=== PATIENT | female | born 1965 | race Caucasian/White ===

== ENCOUNTER → 2022-02-09 | Outpatient (CLI) | payer BC | LOC: CARD 08:56 | PROVIDERS: ATTEND Family Medicine | DX: R00.2 Palpitations (principal); R55 Syncope and collapse | CPT/HCPCS: 93242 ==

== ENCOUNTER → 2022-04-05 | Outpatient (CLI) | payer BC ==
--- NOTE | 2022-04-05 09:22 | Diagnostic Imaging Report ---
PROCEDURE: MR imaging cervical spine without contrast. TECHNIQUE: Multiplanar, multisequence MR imaging of the cervical spine was performed without contrast. INDICATION: Chronic neck pain. COMPARISON: none. FINDINGS: No acute fracture or dislocation is seen in the cervical spine. There is normal alignment of the cervical spine. The vertebral body heights and disc spaces are well maintained. The bone marrow signal is unremarkable. No focal osseous lesions. The craniocervical junction is maintained. The cervical spinal cord demonstrates normal intrinsic signal. No epidural collections are seen. The included brainstem and posterior fossa have normal appearance. Multilevel degenerative changes are seen in the cervical spine with posterior disc bulges and uncovertebral arthropathy. C2-C3: No significant spinal canal or foraminal stenosis. C3-C4: No significant spinal canal or foraminal stenosis. C4-C5: No significant spinal canal or foraminal stenosis C5-C6: Left subarticular disc bulge and uncovertebral arthropathy results in no significant spinal canal narrowing and no right and [id number] left foraminal narrowing. C6-C7: Left subarticular disc bulge and uncovertebral arthropathy results in mild spinal canal narrowing and mild right and moderate to severe left foraminal stenosis. C7-T1: No significant spinal canal or foraminal stenosis. The soft tissues of neck are unremarkable. IMPRESSION: 1. No acute fracture or dislocation of the cervical spine. 2. Multilevel degenerative changes in the cervical spine, greatest at C5-C6 and C6-C7. In particular, left foraminal stenosis is present at these levels. Dictated by: Dictated on workstation # [id number]
== END ==
LOC: RAD 08:45
PROVIDERS: ATTEND Family Medicine
DX: M47.22 Other spondylosis with radiculopathy, cervical region (principal); M48.02 Spinal stenosis, cervical region
CPT/HCPCS: 72141

== ENCOUNTER → 2022-04-13 | Outpatient (CLI) | payer BC ==
[~2022-04-13] MED LIST: ACET-2650 PO; BACL20TA PO; CALC-1049 PO; DIPH25TA31 PO; IBUP-2473 PO; MTP25TSR PO; MULT-1136 PO; OMEP40CA6 PO; TRZ50T PO
== END ==
LOC: CARD 14:03
PROVIDERS: ATTEND Internal Medicine Cardiovascular Disease
DX: R55 Syncope and collapse (principal)
CPT/HCPCS: 93306

== ENCOUNTER 2022-04-17 12:00 | Day surgery (SDC) | payer BC ==
[~2022-04-17] VITALS: Ht 180 cm; Wt 92.7 kg
[2022-04-17 10:22] VITALS: BP 137/83
[2022-04-17 10:29] LABS: HEMATOCRIT 41 % (35-52); HEMOGLOBIN 13.3 g/dL (11.5-16.0); MEAN CORPUSCULAR HEMOGLOBIN 29 pg (25-34); MEAN CORPUSCULAR HGB CONC 32 g/dL (32-36); MEAN CORPUSCULAR VOLUME 89 fL (80-99); MEAN PLATELET VOLUME 9.4 fL (9.0-12.2); PLATELET COUNT 194 10^3/uL (130-400); WHITE BLOOD COUNT 6.1 10^3/uL (4.3-11.0)
[2022-04-17 10:44] LABS: PROTHROMBIN TIME PATIENT 13.2 SEC (12.2-14.7)
[2022-04-17 10:53] LABS: ALBUMIN 4.2 GM/DL (3.2-4.5); BILIRUBIN,TOTAL 0.5 MG/DL (0.1-1.0); CALCIUM 9.4 MG/DL (8.5-10.1); CREATININE SERUM 0.82 MG/DL (0.60-1.30); TOTAL PROTEIN 7.1 GM/DL (6.4-8.2)
[~2022-04-17 12:00] MED LIST changes: +HEParin (CATH LAB) 2,000 ML IV ONE; +HEParin 1000 UNIT/ML (10ML VIAL) FOR BOLUS ONE; +LIDOCAINE 1% INJ 20 ML VIAL ONE; +MIDAZOLAM 5 MG/5 ML (VERSED) VIAL ONE; +NITRO DRIP 25000 MCG/D5W 250 ML IV ONE; +NS IV 1000 ML 1,000 ML IV ONE; +NS IV 1000 ML 1,000 ML ONE; +VERAPAMIL 5 MG/2 ML (CALAN) VIAL IV ONE; +fentaNYL INJ 100 MCG/2 ML AMP ONE
--- NOTE | 2022-04-17 12:23 | Cardiac Procedure Note-CS/ASA ---
Pre-Procedure Note Pre-Op Procedure Note Date of Available H&P: Apr 12, 2022 Date H&P Reviewed: Apr 17, 2022 Time H&P Reviewed: 11:15 History & Physical: H&P Reviewed, No changes noted Conscious Sedation Pre-Proced ASA Score 3 For ASA 3 and 4: Consider anesthesia and medical clearance. Also, for patients with a history of failed moderate sedation consider anesthesia. Airway Lungs Heart ASA score ASA 1: a normal healthy patient ASA 2: a patient with a mild systemic disease (mid diabetes, controlled hypertension, obesity ASA 3: a patient with a severe systemic disease that limits activity (angina, COPD, prior Myocardial infarction) ASA 4: a patient with an incapacitating disease that is a constant threat to life (CHF, renal failure) ASA 5: a moribund patient not expected to survive 24 hrs. (ruptured aneurysm) ASA 6: a declared brain- patient whose organs are being harvested. For emergent operations, add the letter E after the classification Mallampati Classification Grade 2 Sedation Plan Analgesia, Amnesia, Plan communicated to team members The patient is an appropriate candidate to undergo the planned procedure, sedation, and anesthesia. The patient immediately re-assessed prior to indication. ILA CALDERÓN MD FACP FAC CCDS Apr 17, 2022 12:23
--- NOTE | 2022-04-17 12:29 | Discharge Inst-Cardiology ---
Discharge Inst-Cardiac Discharge Medications Continued Medications: Acetaminophen (Tylenol Arthritis) 650 Mg Tablet.er 650-1300 MG PO Q8H PRN for PAIN-MILD (1-4), TAB Baclofen (Baclofen) 20 Mg Tablet 20 MG PO DAILY PRN for MUSCLE SPASMS, TAB Calcium Carb/Vitamin D3/Vit K1 (Viactiv 650 mg-12.5 Mcg Chew) 650 Mg Calcium- 12.5 Mcg-40 Mcg Tab.chew 1 EACH PO BID, TAB Diphenhydramine HCl (Diphenhydramine HCl) 25 Mg Tablet 25 MG PO HS, TAB Metoprolol Succinate (Metoprolol Succinate) 25 Mg Tab.er.24h 25 MG PO HS, TAB Multivitamin (Multivitamin) 1 Each Tablet 1 EACH PO DAILY, TAB Omeprazole (Omeprazole) 40 Mg Capsule.dr 40 MG PO DAILY, CAP Trazodone HCl (Trazodone HCl) 50 Mg Tablet 50-100 MG PO HS PRN for SLEEP, TAB TAKES 1-2 (50MG) TABLETS Discontinued Medications: Ibuprofen (Ibuprofen) 200 Mg Tablet 600 MG PO Q6H PRN for PAIN-MILD (1-4), TAB ILA CALDERÓN MD FACP FACC CCDS Apr 17, 2022 12:29
[2022-04-17] MEDS ORDERED: NS IV 1000 ML 1,000 ML IV SCH (12:30)
--- NOTE | 2022-04-17 12:32 | Discharge Inst-Post CATH ---
Discharge Inst-CATH/EP Post Cardiac Cath/EP D/C Inst Follow Up/Plan F/u with Dr Caceres next week ACTIVITY * Go Home directly and rest. * Limit activity of the leg (or wrist if it was used) for 7 days including aerobics, swimming, jogging, bicycling, etc. * Avoid lifting, pushing, pulling or excessive movement of the affected extremit y for 7 days. * Customary sexual activity may be resumed after 2 days-use caution not to use a position that strains or causes pain to the affected extremity. * No driving for 24 hours. * NO SMOKING. * Avoid straining for bowel movements for 7 days. * Gentle walking on level ground is allowed. * Returning to work will depend on the type of procedure and the results. Your doctor will discuss this with you. CALL YOUR DOCTOR FOR ANY OF THE FOLLOWING: *If bleeding from the puncture site occurs- Apply gentle pressure to site with clean cloth and call your doctor or EMS. * If a knot or lump forms under the skin, increases in size, or causes pain. * If bruising appears to be worsening or moving further down your leg instead of disappearing. * Temperature above 101 F. CARE OF YOUR WRIST INCISION; * Bruising or purple discoloration of the skin near the puncture site is common. * You may shower. * DO NOT submerge wrist. * Leave dressing on FOR 24 hours. ILA CACERES MD FACP FAC CCDS Apr 17, 2022 12:32
[2022-04-17 13:50] VITALS: BP 115/79
[2022-04-17 14:00] VITALS: BP 111/83
[2022-04-17 14:30] VITALS: BP 112/74
--- NOTE | 2022-04-17 14:47 | CARDIAC CATHETERIZATION ---
DATE OF SERVICE: 04/17/2022 CARDIAC CATHETERIZATION INDICATION: The patient is a 56-year-old lady who has recently had symptoms of syncope and a monitor showed brief, nonsustained wide complex tachycardia. Cardiac catheterization was carried out after having obtained an informed consent. DESCRIPTION OF PROCEDURE: She was brought to the cardiac catheterization laboratory. The right wrist was prepped and draped in the usual sterile fashion. A 1% lidocaine was used for local anesthesia. A #6 Wolof sheath was introduced into the right femoral artery using the Seldinger technique. Catheter exchanges were made over an exchange length wire. We used a [place] catheter to carry out left coronary angiography and a 6-Wolof JR4 catheter to carry out right coronary angiography. Left heart catheterization was carried out using the [place] catheter and also the JR4 catheter. Left ventricular angiography was carried out through the JR4 catheter. The catheter was pulled back and removed. Following sheath removal, a wrist band was applied for hemostasis. She tolerated the procedure well. HEMODYNAMICS: Left ventricular end diastolic pressure following coronary angiography was 12 mmHg. There was no significant pressure gradient on pullback across the aortic valve. CORONARY ANGIOGRAPHY: Left main coronary artery is free of significant disease. Left anterior descending artery is free of significant disease. Left circumflex artery is free of significant disease. Right coronary artery is large and dominant. It has a somewhat high anterior origin. It does not exhibit significant disease. LEFT VENTRICULAR ANGIOGRAPHY: Left ventricular angiography was carried out in the right anterior oblique projection. Global left ventricular systolic function is normal. No regional wall motion abnormalities seen in this view. Ejection fraction is approximately 60%. CONCLUSIONS: 1. No angiographically significant coronary artery disease. 2. Normal global left ventricular systolic function, ejection fraction approximately 60%. 3. Left ventricular end-diastolic pressure of 12 mmHg. Job ID: [id number] DocumentID: [id number] Dictated Date: 04/17/2022 12:42:44 Stationary Engineer Date: 04/17/2022 14:45:00 Dictated By: ILA CALDERÓN MD; SYLVIE; FACP; FACC;
[2022-04-17 15:00] VITALS: BP 109/64
[2022-04-17 15:15] VITALS: BP 109/64
--- NOTE | 2022-04-17 21:39 | OPERATIVE REPORT ---
DATE OF SERVICE: 04/17/2022 PREOPERATIVE DIAGNOSIS: Syncope. POSTOPERATIVE DIAGNOSIS: Syncope. PROCEDURE: Implantable loop recorder implantation. DESCRIPTION OF PROCEDURE: Informed consent was obtained. The left prepectoral area was prepared and draped in the usual sterile fashion. A 1% lidocaine was used for local anesthesia. The tools provided with the Lumatix LINQ II device were used to make a subcutaneous pocket anterior to the fourth intercostal space on the left side into which the implantable loop recorder was placed and the skin edges were closed using Steri-Strips and Dermabond. She tolerated the procedure well. Job ID: [id number] DocumentID: [id number] Dictated Date: 04/17/2022 13:04:16 Automotive Assembler Date: 04/17/2022 21:38:00 Dictated By: ILA CALDERÓN MD; SYLVIE; FACP; FACC;
== END 2022-04-17 15:15 | disposition home or self-care (01) ==
LOC: CATH 12:00 → SDC 13:49 → CATH 15:15
PROVIDERS: ATTEND Internal Medicine Cardiovascular Disease
DX: I47.1 Supraventricular tachycardia (principal); I47.20 Ventricular tachycardia, unspecified; R55 Syncope and collapse
CPT/HCPCS: 33285; 80053; 80061; 85027; 85610; 85730; 87081; 93458; C1764; C1894; 36415

== ENCOUNTER 2022-06-13 05:33 | Outpatient (CLI) | payer BC ==
[~2022-06-13] VITALS: Ht 180.3 cm; Wt 95.5 kg
[~2022-06-13 05:33] MED LIST changes: -HEParin (CATH LAB) 2,000 ML IV ONE; -HEParin 1000 UNIT/ML (10ML VIAL) FOR BOLUS ONE; -LIDOCAINE 1% INJ 20 ML VIAL ONE; -MIDAZOLAM 5 MG/5 ML (VERSED) VIAL ONE; -NITRO DRIP 25000 MCG/D5W 250 ML IV ONE; -NS IV 1000 ML 1,000 ML IV ONE; -NS IV 1000 ML 1,000 ML ONE; -VERAPAMIL 5 MG/2 ML (CALAN) VIAL IV ONE; -fentaNYL INJ 100 MCG/2 ML AMP ONE
== END 2022-06-15 10:33 | disposition home or self-care (01) ==
LOC: PREOP 05:33
PROVIDERS: ATTEND Surgery
DX: Z01.818 Encounter for other preprocedural examination (principal)

== ENCOUNTER 2022-06-20 09:49 | Day surgery (SDC) | payer BC ==
--- NOTE | 2022-06-19 13:59 | HISTORY AND PHYSICAL ---
PROCEDURE DATE: 06/20/2022. ATTENDING PRIMARY CARE PHYSICIAN: Dr. Sera Montalvo. HISTORY OF PRESENT ILLNESS: Ms. Jolie France is a 56-year-old female who was referred over to us for episodes of reflux. She reports that she did have an EGD 3 years ago and reports that she remembers she did have a hiatal hernia. She reports that since that time, she recently developed issues where she eats and starts to swallow and will get dizzy as well as syncope. She denies any nausea or vomiting as well as no abdominal pain. She does report at times she does feel like food has gotten stuck; however, this is not frequent. She reports that she underwent a cardiac workup and was found to have an arrhythmia and was started on metoprolol. She reports that she still has these symptoms at times and was referred over to us for upper endoscopy. She denies any hematemesis or any coffee-ground emesis. MEDICAL HISTORY: 1. Gastroesophageal reflux disease. 2. Hiatal hernia. 3. Cardiac arrhythmia. SURGICAL HISTORY: Laparoscopic cholecystectomy in 1992, partial hysterectomy in 2008. ALLERGIES: Oral steroids, Floxin. MEDICATIONS: Omeprazole 40 mg, metoprolol ER 25 mg daily. SOCIAL HISTORY: Negative for tobacco smoker, for alcohol. FAMILY HISTORY: Father, hypertension. Mother, hypertension, myocardial infarction. VITAL SIGNS: Blood pressure is 140/80. Current weight is 206.2 pounds. 5 feet 11 inches. REVIEW OF SYSTEMS: Well-nourished female in no acute distress. She is not experiencing any shortness of breath or difficulty breathing. No chest pain, palpitations or diaphoresis. No nausea, vomiting or abdominal pain. No diarrhea or constipation. No red blood per rectum. No dark tarry stools. She does report episodes of heartburn. She denies any hematemesis or any coffee-ground emesis. No recent inadvertent weight loss. No fever or chills. All other review of systems negative. PHYSICAL EXAM: CHEST: Clear. Good breath sounds bilaterally. Heart: Regular, no murmurs. EXTREMITIES: No lower extremity edema. Negative Homans sign. HEENT: No scleral icterus. No cervical lymphadenopathy. ABDOMEN: Soft, nontender, nondistended. SKIN: Warm, dry and pink. NEUROLOGIC: Awake, alert and oriented x3. ASSESSMENT AND PLAN: A 56-year-old female with gastroesophageal reflux disease, who also has a history of hiatal hernia. She reports that she has had issues with syncope with dizziness at times. She reports that she underwent cardiac workup and reports that nothing significant was identified. It was then recommended to proceed with an upper endoscopy. At this time, we will proceed with scheduling her for an EGD with biopsies as appropriate. Job ID: [id number] DocumentID: [id number] Dictated Date: 06/19/2022 12:52:47 Supervisor Tank Cleaning Date: 06/19/2022 13:57:00 Dictated By: AC REYNOSO APRN
[~2022-06-20] VITALS: Ht 180.3 cm; Wt 95.5 kg
[2022-06-20] MEDS ORDERED: LACTATED RINGERS 1,000 ML IV STA (10:01)
[2022-06-20 10:13] VITALS: BP 116/77
[2022-06-20] MEDS ORDERED: HURRICAINE EXT TUBE (BENZOCAINE) XX PRN (10:15)
[2022-06-20] MEDS ORDERED: LIDOCAINE JELLY 2% 6 ML SYRINGE MM PRN (10:15)
[2022-06-20] MEDS ORDERED: PROPOFOL INJECTION 50 ML IV ONE (10:51)
[2022-06-20] MEDS ORDERED: MIDAZOLAM 2 MG/2 ML (VERSED) VIAL ONE (10:51)
[2022-06-20] MEDS ORDERED: LIDOCAINE JELLY 2% 6 ML SYRINGE ONE (11:02)
--- NOTE | 2022-06-20 11:03 | Progress Note-Pre Operative ---
Pre-Operative Progress Note Date of Available H&P: Jun 20, 2022 Date H&P Reviewed: Jun 20, 2022 Time H&P Reviewed: 10:00 History & Physical: No changes noted Pre-Operative Diagnosis: RAFAEL SKY MD Jun 20, 2022 11:03
--- NOTE | 2022-06-20 11:05 | Discharge Inst-Surgical ---
D/C Lap Instructions-CHRYSTAL Follow Up Activity as tolerated High Fiber Diet 25g or more per day Avoid Alcohol, Caffeine, Spicy [place] and Acid foods. Drink 64 fluid oz or more of fluids per day. Symptoms to Report: Fever over 101 degree F, Nausea/Vomiting If any problems/questions: Contact your physician or go to Emergency Room RAFAEL JARRELL MD Jun 20, 2022 11:05
[2022-06-20] MEDS ORDERED: ONDANSETRON 4 MG/2 ML (SDV) Z0FRAN IVP PRN (11:15)
[2022-06-20] MEDS ORDERED: ONDANSETRON 4 MG (ZOFRAN) ORAL DISSOLVE TAB PO PRN (11:15)
[2022-06-20 11:25] VITALS: BP 91/64
[2022-06-20 11:30] VITALS: BP 90/56
[2022-06-20 11:35] VITALS: BP 89/58
--- NOTE | 2022-06-20 11:37 | Progress Note-Post Operative ---
Post-Operative Progess Note Surgeon (s)/Planimeter Operator (s) Surgeon RAFAEL JARRELL MD Planimeter Operator: none Pre-Operative Diagnosis GERD Post-Operative Diagnosis reflux esophagitis(grade B-C), moderate HH(3cm), moderate gastritis. Procedure & Operative Findings Date of Procedure 06/20/22 Procedure Performed/Findings EGD with bx. Anesthesia Type mac Estimated Blood Loss Estimated blood loss (mL): minimal Specimens/Packing Specimens Removed ge jxn, antrum RAFAEL JARRELL MD Jun 20, 2022 11:37
[2022-06-20 11:40] VITALS: BP 108/62
[2022-06-20] MEDS ORDERED: PANT40TA52 PO (11:43)
[2022-06-20 12:10] VITALS: BP_SYST 108; BP_SYST 120; BP_DIAS 62; BP_DIAS 78
--- NOTE | 2022-06-20 15:09 | Anesthesia-General Post-Op ---
MAC Patient Condition Mental Status/LOC: Same as Preop Cardiovascular: Satisfactory Nausea/Vomiting: Absent Respiratory: Satisfactory Pain: Controlled Complications: Absent Post Op Complications Complications None Follow Up Care/Instructions Patient Instructions None needed. Anesthesiology Discharge Order Discharge Order Patient is doing well, no complaints, stable vital signs, no apparent adverse anesthesia problems. No complications reported per nursing. MAURO BOYER CRNA Jun 20, 2022 15:09
--- NOTE | 2022-06-20 17:44 | OPERATIVE REPORT ---
DATE OF SERVICE: 06/20/2022 ATTENDING PRIMARY CARE PHYSICIAN: Dr. Sera Montalvo. PREOPERATIVE DIAGNOSES: Chest pain and gastroesophageal reflux disease. POSTOPERATIVE DIAGNOSES: Reflux esophagitis, [place] between grade B and C, moderate size hiatal hernia approximately 3 cm in size, moderate gastritis. PROCEDURE: EGD with biopsy. SURGEON: Dr. Jarrell. ANESTHESIA: Monitored anesthesia care. ESTIMATED BLOOD LOSS: Minimal. FINDINGS: Reflux esophagitis, [place] between grade B and C, moderate size hiatal hernia approximately 3 cm in size, moderate gastritis. DISPOSITION: The patient tolerated the procedure well. INDICATIONS: The patient is a 56-year-old female referred over to us for reflux type of symptoms. Approximately 3 years ago, she underwent an EGD and remembers having a hiatal hernia. Since that time, she developed issues where she would take in food boluses and swallow, get dizzy and have a syncopal episode. She does not report any episodes of regurgitation as well as no nausea, no vomiting. She underwent a cardiac workup, and was found to have a mild arrhythmia and was started on metoprolol. DESCRIPTION OF PROCEDURE: The patient was brought to the endoscopy suite, laid in the left lateral decubitus position. After adequate IV pain and sedative medications and monitored anesthesia care, the mouthpiece was applied. The endoscope was placed in the mouth, visualizing the pharynx and hypopharyngeal region. Vocal cords, epiglottis and vallecula identified and appeared to be normal. The endoscope was then intubated into the esophageal opening and the esophagus insufflated. The endoscope was then advanced through the first, second and third portions of esophagus at the level of the GE junction, reflux esophagitis, [place] between grade B and C identified. There did not appear to be any strictures. A biopsy was taken with forceps with visualization of good hemostasis. The endoscope was then advanced into the stomach and endoscope retroflexed once again visualizing a hiatal hernia, which seemed to be slightly larger in size and considered moderate in size at 3 cm. There was a moderate severity gastritis noted. No formal ulcerations, polyps or any neoplasms. A biopsy was taken of the antrum to rule out H. pylori with visualization of good hemostasis. The endoscope was then advanced through the pylorus and the first and second portion of the duodenum, which appeared normal with no distal obstructions. The endoscope was then slowly withdrawn while taking a second look and suctioning of residual air with no additional findings. The patient tolerated the procedure well. We will recommend the necessary lifestyle and dietary accommodation for her reflux esophagitis and hiatal hernia, which would encompass small and more frequent meals, avoidance of eating at night as well as head elevation while lying supine. We feel that the root cause of her dysphagia as well as syncopal episodes is due to pressure on the vagus nerve by the hiatal hernia. We will try medical management first again by small and more frequent meals, avoidance of eating at night as well as head elevation while lying supine. We will also have her continue with her omeprazole 40 mg daily; however, also add Protonix 40 mg daily to be taken at a different time during the day. If she proceeds with maximal medical therapy; however, continues to have symptoms, she may be a candidate for hiatal hernia repair and antireflux procedure. However, before proceeding with this, we would proceed with an esophageal manometry study to rule out a gastrointestinal motility disorder. Job ID: [id number] DocumentID: [id number] Dictated Date: 06/20/2022 11:32:36 Mechanic/Welder Date: 06/20/2022 17:42:00 Dictated By: RAFAEL JARRELL MD MTDD
== END 2022-06-20 12:20 | disposition home or self-care (01) ==
LOC: ENDO 09:49
PROVIDERS: ATTEND Surgery
DX: K21.00 Gastro-esophageal reflux disease with esophagitis, without bleeding (principal); K44.9 Diaphragmatic hernia without obstruction or gangrene; K29.70 Gastritis, unspecified, without bleeding; K31.89 Other diseases of stomach and duodenum; I49.9 Cardiac arrhythmia, unspecified; Z79.899 Other long term (current) drug therapy